=== PATIENT | male | born 1945 | race African-American/Black ===

== ENCOUNTER 2016-10-06 09:05 | Outpatient (CLI) | payer MEDICARE ==
[2016-10-06 12:37] LABS: #Basophils 0.1 thou/uL (0.0-0.2); #Eosinphils 0.2 thou/uL (0.0-0.7); #Lymphocytes 1.8 thou/uL (1.20-3.40); #Monocytes 0.6 thou/uL (0.11-0.59); #Neutrophils 2.4 thou/uL (1.40-6.50); %Basophils 1.3 % (0.0-1.0); %Eosinophils 3.3 % (0.0-10.0); %Lymphocytes 35.5 % (21.0-51.0); %Monocytes 11.4 % (0.0-10.0); Mean Platelet Volume 6.3 fL (7.4-10.4); Red Blood Cell (RBC) Count 5.48 mill/uL (4.70-6.10)
[2016-10-06 12:43] LABS: ALT (SGPT) 19 U/L (0-55); AST (SGOT) 26 U/L (5-34); Alkaline Phosphatase 72 U/L (40-150); Anion Gap 18 mmol/L (10-20); BUN (Urea Nitrogen) 9 mg/dL (8.4-25.7); Bilirubin, Total 0.8 mg/dL (0.2-1.2); Calc. Creatinine Clearance 0 mL/min (70-130); Calcium 9.2 mg/dL (7.8-10.44); Carbon Dioxide 24 mmol/L (23-31); Chloride 102 mmol/L (98-107); Estimated GFR-MDRD 90; Globulin 3.2 g/dL (2.4-3.5); LDL Cholesterol, Calculated 103 mg/dL; Protein, Total 7.4 g/dL (5.8-8.1)
[2016-10-06 12:57] LABS: Bilirubin Negative (Negative); Blood, Urine Negative (Negative); Glucose, Urine (Dipstick) Negative (Negative); Ketone, Urine Negative (Negative); Nitrite Negative (Negative); Protein, Urine (Dipstick) Trace mg/dL (Neg-Trace); Urobilinogen 0.2 mg/dL (0.2-1.0)
[2016-10-06 13:20] LABS: Hemoglobin A1c 6.5 % (4.0-6.0)
== END 2016-10-06 09:06 ==
LOC: NAVSJIPCSP 09:05
PROVIDERS: ATTEND Internal Medicine
DX: Z12.5 Encounter for screening for malignant neoplasm of prostate (principal); E78.5 Hyperlipidemia, unspecified; E11.9 Type 2 diabetes mellitus without complications; I11.9 Hypertensive heart disease without heart failure; Z79.899 Other long term (current) drug therapy
CPT/HCPCS: 36415; 80053; 80061; 81003; 82043; 83036; 85025; G0103

== ENCOUNTER 2016-10-20 09:34 | Emergency (ER) | payer MEDICARE ==
[2016-10-20] MEDS ORDERED: Sodium Chloride 0.9% 0 ML ONE (10:17)
[2016-10-20 10:40] LABS: ALT (SGPT) 19 U/L (0-55); AST (SGOT) 21 U/L (5-34); Alkaline Phosphatase 67 U/L (40-150); Anion Gap 15 mmol/L (10-20); BUN (Urea Nitrogen) 10 mg/dL (8.4-25.7); Bilirubin, Total 1.1 mg/dL (0.2-1.2); Calc. Creatinine Clearance 0 mL/min (70-130); Calcium 9.1 mg/dL (7.8-10.44); Carbon Dioxide 23 mmol/L (23-31); Chloride 105 mmol/L (98-107); Estimated GFR-MDRD 89; Globulin 3.5 g/dL (2.4-3.5); Protein, Total 7.4 g/dL (5.8-8.1)
[2016-10-20 10:45] LABS: PTT 28.6 SEC (22.9-36.1); Prothrombin Time 13.4 SEC (12.0-14.7)
[2016-10-20 10:58] LABS: Anisocytosis SLIGHT = 6-15 cells (100X) (0-5/hpf); Hematocrit 42.3 % (42.0-52.0); Mean Platelet Volume 6.9 fL (7.4-10.4); Neutrophil 49 % (42-75); Red Blood Cell (RBC) Count 5.24 mill/uL (4.70-6.10); White Blood Cell (WBC) Count 3.9 thou/uL (4.8-10.8)
== END 2016-10-20 12:59 | disposition home or self-care (01) ==
LOC: NAV ERS 09:34
DX: K92.2 Gastrointestinal hemorrhage, unspecified (principal); E11.9 Type 2 diabetes mellitus without complications; E78.5 Hyperlipidemia, unspecified; I10 Essential (primary) hypertension; J44.9 Chronic obstructive pulmonary disease, unspecified; Z87.891 Personal history of nicotine dependence; Z79.84 Long term (current) use of oral hypoglycemic drugs
CPT/HCPCS: 36415; 80053; 82274; 85025; 85610; 85730; 99285; J7050

== ENCOUNTER 2017-01-04 09:01 | Outpatient (CLI) | payer MEDICARE ==
[2017-01-04 15:36] LABS: Cardiac Risk 4.6 (Less than 4.5)
[2017-01-04 17:50] LABS: Hep C IgG Ab Non-Reactive (NonReactive); Hep C Index 0.09 S/CO (0-0.79)
== END 2017-01-04 09:02 | disposition home or self-care (01) ==
LOC: NAVSJIPCSP 09:01
PROVIDERS: ATTEND Internal Medicine
DX: E78.5 Hyperlipidemia, unspecified (principal); E11.9 Type 2 diabetes mellitus without complications; Z72.89 Other problems related to lifestyle; Z79.899 Other long term (current) drug therapy
CPT/HCPCS: 36415; 80061; 83036; 86803

== ENCOUNTER 2017-04-07 09:34 | Outpatient (CLI) | payer MEDICARE ==
[2017-04-07 12:45] LABS: Cardiac Risk 5.2 (Less than 4.5)
[2017-04-07 13:11] LABS: Hemoglobin A1c 6.4 % (4.0-6.0)
== END 2017-04-07 09:35 | disposition home or self-care (01) ==
LOC: NAVSJIPCSP 09:34
PROVIDERS: ATTEND Internal Medicine
DX: E78.5 Hyperlipidemia, unspecified (principal); E11.9 Type 2 diabetes mellitus without complications; Z79.899 Other long term (current) drug therapy
CPT/HCPCS: 36415; 80061; 83036

== ENCOUNTER 2020-07-28 14:19 | Emergency (ER) | payer MEDICARE ==
[2020-07-28] MEDS ORDERED: Acetaminophen 500 MG TAB ONE (15:31)
[2020-07-28 15:40] LABS: ALT (SGPT) 20 U/L (8-55); AST (SGOT) 34 U/L (5-34); Albumin 3.8 g/dL (3.4-4.8); Alkaline Phosphatase 58 U/L (40-110); Anion Gap 18 mmol/L (10-20); BUN (Urea Nitrogen) 19 mg/dL (8.4-25.7); Bilirubin, Total 0.3 mg/dL (0.2-1.2); Calc. Creatinine Clearance 0 mL/min (70-130); Calcium 8.8 mg/dL (7.8-10.44); Carbon Dioxide 23 mmol/L (23-31); Chloride 98 mmol/L (98-107); Globulin 3.6 g/dL (2.4-3.5); Glucose 97 mg/dL (83-110); Potassium 4.1 mmol/L (3.5-5.1); Protein, Total 7.4 g/dL (5.8-8.1); Sodium 135 mmol/L (136-145)
--- NOTE | 2020-07-28 15:44 | RAD ---
PORTABLE CHEST: Date: 07/28/2020 HISTORY: Cough and fever. COMPARISON: 02/15/2016 exam. FINDINGS: Heart size and mediastinum are within normal limits. No confluent infiltrative process is seen. Vague increased density could be an indication of subtle ground-glass opacities. There is blunting to the right costophrenic angle. IMPRESSION: 1. Suggestion of a small right pleural effusion. 2. No definite confluent infiltrate. Vague increased density, particularly in the right lung, would raise the possibility of some minimal ground-glass infiltrate. Clinical correlation is suggested as t o the possibility of COVID exposure. POS: NATHANIEL
[2020-07-28] MEDS ORDERED: Sodium Chloride 0.9% 100 ML ONE (15:55)
[2020-07-28] MEDS ORDERED: cefTRIAXone\\ROCEPHIN 1 GM VIAL ONE (15:55)
[2020-07-28 15:58] LABS: #Monocytes 0.4 thou/uL (0.11-0.59); #Neutrophils 1.4 thou/uL (1.40-6.50); %Basophils 0.7 % (0.0-1.0); %Eosinophils 0.1 % (0.0-10.0); %Lymphocytes 35.8 % (21.0-51.0); %Monocytes 15.3 % (0.0-10.0); %Neutrophils 48.1 % (42.0-75.0); Hemoglobin 14.5 g/dL (14.0-18.0); Mean Corpuscular HGB CONC 30.8 g/dL (32.0-36.0); Mean Corpuscular Hemoglobin 25.4 pg (27.0-31.0); Mean Corpuscular Volume 82.7 fL (78.0-98.0); Mean Platelet Volume 6.9 fL (7.4-10.4); Platelet Count 134 thou/uL (130-400); RBC Distribution Width 13.9 % (11.5-14.5); White Blood Cell (WBC) Count 2.9 thou/uL (4.8-10.8)
[2020-07-28] MEDS ORDERED: Dexamethasone 20 MG/5 ML VIAL ONE (16:19)
== END 2020-07-28 17:54 | disposition short-term general hospital (02) ==
LOC: NAV ERS 14:19
DX: R53.81 Other malaise (principal); R05 Cough; Z20.828 Contact with and (suspected) exposure to other viral communicable diseases; E11.9 Type 2 diabetes mellitus without complications; E78.5 Hyperlipidemia, unspecified; I10 Essential (primary) hypertension; Z87.891 Personal history of nicotine dependence; Z79.82 Long term (current) use of aspirin; Z79.899 Other long term (current) drug therapy; Z79.51 Long term (current) use of inhaled steroids
CPT/HCPCS: 71045; 80053; 83605; 83880; 84484; 85025; 87040; 93005; 94760; 96365; 96375; J0696; J1100; J3490

== ENCOUNTER 2021-11-08 01:03 | Emergency (ER) | payer OTHER, MEDICARE ==
[2021-11-08] MEDS ORDERED: Lidocaine 1% (PF) 30 ML VIAL ONE (02:27)
[2021-11-08] MEDS ORDERED: Boostrix 0.5 ML (Tdap) VIAL ONE (02:27)
== END 2021-11-08 03:30 | disposition home or self-care (01) ==
LOC: NAV ERS 01:03
DX: S01.111A Laceration without foreign body of right eyelid and periocular area, initial encounter (principal); S09.90XA Unspecified injury of head, initial encounter; S02.2XXA Fracture of nasal bones, initial encounter for closed fracture; F10.129 Alcohol abuse with intoxication, unspecified; E11.9 Type 2 diabetes mellitus without complications; I10 Essential (primary) hypertension; E78.5 Hyperlipidemia, unspecified; J44.9 Chronic obstructive pulmonary disease, unspecified; Z23 Encounter for immunization; Z79.82 Long term (current) use of aspirin; Z87.891 Personal history of nicotine dependence; W01.190A Fall on same level from slipping, tripping and stumbling with subsequent striking against furniture, initial encounter
CPT/HCPCS: 12011; 70450; 70486; 72125; 90471; 90715; J2001

== ENCOUNTER 2022-01-14 12:56 | Outpatient (CLI) | payer MEDICARE ==
[2022-01-14 13:27] LABS: #Eosinphils 0.2 thou/uL (0.0-0.7); #Lymphocytes 1.5 thou/uL (1.20-3.40); #Monocytes 0.6 thou/uL (0.11-0.59); #Neutrophils 1.9 thou/uL (1.40-6.50); %Basophils 0.9 % (0.0-1.0); %Eosinophils 4.3 % (0.0-10.0); %Lymphocytes 35.8 % (21.0-51.0); %Monocytes 13.8 % (0.0-10.0); %Neutrophils 45.1 % (42.0-75.0); Anion Gap 19 mmol/L (10-20); BUN (Urea Nitrogen) 12 mg/dL (8.4-25.7); Calc. Creatinine Clearance 0 mL/min (70-130); Calcium 9.6 mg/dL (7.8-10.44); Carbon Dioxide 24 mmol/L (23-31); Chloride 103 mmol/L (98-107); Glucose 106 mg/dL (83-110); Hemoglobin 12.7 g/dL (14.0-18.0); Mean Corpuscular HGB CONC 29.1 g/dL (32.0-36.0); Mean Corpuscular Hemoglobin 25.3 pg (27.0-31.0); Mean Corpuscular Volume 86.8 fL (78.0-98.0); Mean Platelet Volume 7.2 fL (7.4-10.4); Platelet Count 181 thou/uL (130-400); Potassium 4.5 mmol/L (3.5-5.1); RBC Distribution Width 15.5 % (11.5-14.5); Red Blood Cell (RBC) Count 5.04 mill/uL (4.70-6.10); Sodium 141 mmol/L (136-145); White Blood Cell (WBC) Count 4.3 thou/uL (4.8-10.8)
[2022-01-14 13:31] LABS: Prothrombin Time 13.4 sec (12.0-14.7)
[2022-01-14 13:32] LABS: PTT 34.3 sec (22.9-36.1)
[2022-01-14 14:11] LABS: Follow-up Chemistry Comp? YES; Follow-up Coag Comp? YES; Follow-up Hematology Comp? YES; Follow-up Result - Chemistry REPORT FAXED; Follow-up Result - Coag REPORT FAXED; Follow-up Result - Hematology REPORT FAXED
== END 2022-01-14 12:57 | disposition home or self-care (01) ==
LOC: NAV LABSP 12:56
PROVIDERS: ATTEND Chiropractor Neurology
DX: Z51.81 Encounter for therapeutic drug level monitoring (principal); I73.9 Peripheral vascular disease, unspecified; Z79.899 Other long term (current) drug therapy
CPT/HCPCS: 36415; 80048; 85025; 85610; 85730

== ENCOUNTER 2022-02-25 10:12 | Outpatient (CLI) | payer MEDICARE ==
[2022-02-25 11:14] LABS: Prothrombin Time 13.2 sec (12.0-14.7)
[2022-02-25 11:15] LABS: PTT 31.8 sec (22.9-36.1)
[2022-02-25 11:16] LABS: Anion Gap 16 mmol/L (10-20); BUN (Urea Nitrogen) 12 mg/dL (8.4-25.7); Calc. Creatinine Clearance 0 mL/min (70-130); Calcium 9.3 mg/dL (7.8-10.44); Carbon Dioxide 23 mmol/L (23-31); Chloride 104 mmol/L (98-107); Estimated GFR 71; Glucose 116 mg/dL (83-110); Potassium 4.1 mmol/L (3.5-5.1); Sodium 139 mmol/L (136-145)
[2022-02-25 11:24] LABS: #Eosinphils 0.1 thou/uL (0.0-0.7); #Lymphocytes 1.4 thou/uL (1.20-3.40); #Monocytes 0.5 thou/uL (0.11-0.59); #Neutrophils 1.7 thou/uL (1.40-6.50); %Basophils 0.8 % (0.0-1.0); %Eosinophils 3.9 % (0.0-10.0); %Lymphocytes 37.2 % (21.0-51.0); %Monocytes 13.7 % (0.0-10.0); %Neutrophils 44.4 % (42.0-75.0); Hemoglobin 12.3 g/dL (14.0-18.0); Mean Corpuscular HGB CONC 28.6 g/dL (32.0-36.0); Mean Corpuscular Hemoglobin 25.3 pg (27.0-31.0); Mean Corpuscular Volume 88.6 fL (78.0-98.0); Mean Platelet Volume 7.7 fL (7.4-10.4); Platelet Count 148 thou/uL (130-400); RBC Distribution Width 15.7 % (11.5-14.5); Red Blood Cell (RBC) Count 4.86 mill/uL (4.70-6.10); White Blood Cell (WBC) Count 3.8 thou/uL (4.8-10.8)
== END 2022-02-25 10:13 | disposition home or self-care (01) ==
LOC: NAV LABSP 10:12
PROVIDERS: ATTEND Chiropractor Neurology
DX: Z51.81 Encounter for therapeutic drug level monitoring (principal); I73.9 Peripheral vascular disease, unspecified; Z79.899 Other long term (current) drug therapy
CPT/HCPCS: 36415; 80048; 85025; 85610; 85730

== ENCOUNTER 2022-12-12 04:25 | Emergency (ER) | payer MEDICARE ==
[2022-12-12] MEDS ORDERED: Ibuprofen 200 MG TAB ONE (05:10)
[2022-12-12] MEDS ORDERED: predniSONE 20 MG TAB ONE (05:10)
== END 2022-12-12 05:15 | disposition home or self-care (01) ==
LOC: NAV ERS 04:25
DX: S29.011A Strain of muscle and tendon of front wall of thorax, initial encounter (principal); R05.9 Cough, unspecified; E11.9 Type 2 diabetes mellitus without complications; E78.5 Hyperlipidemia, unspecified; I10 Essential (primary) hypertension; J44.9 Chronic obstructive pulmonary disease, unspecified; Z87.891 Personal history of nicotine dependence; Z79.84 Long term (current) use of oral hypoglycemic drugs; Z79.899 Other long term (current) drug therapy; X58.XXXA Exposure to other specified factors, initial encounter
CPT/HCPCS: 71046; J7512

== ENCOUNTER 2025-07-15 15:51 | Emergency (ER) | payer MEDICARE ==
[2025-07-15 17:12] LABS: ALT (SGPT) 11 U/L (Less than 45); AST (SGOT) 32 U/L (11-34); Albumin 3.8 g/dL (3.1-4.5); Alkaline Phosphatase 59 U/L (40-110); Anion Gap 20 mmol/L (10-20); BUN (Urea Nitrogen) 15 mg/dL (8.4-25.7); Bilirubin, Total 1.3 mg/dL (0.3-1.2); Calc. Creatinine Clearance 0 mL/min (70-130); Calcium 9.3 mg/dL (7.8-10.44); Carbon Dioxide 20 mmol/L (23-31); Chloride 102 mmol/L (98-107); Globulin 4.3 g/dL (2.4-3.5); Glucose 115 mg/dL (83-110); Sodium 137 mmol/L (136-145)
[2025-07-15] MEDS ORDERED: cefTRIAXone (ROCEPHIN) 2 GM VIAL ONE (17:20)
[2025-07-15 17:31] LABS: Hematocrit 42.9 % (42.0-52.0); Hemoglobin 13.5 g/dL (14.0-18.0); Mean Corpuscular Hemoglobin 25.0 pg (27.0-31.0); Mean Corpuscular Volume 79.8 fl (78.0-98.0); Platelet Count 165 10x3/uL (130-400); Red Blood Cell (RBC) Count 5.38 mill/uL (4.70-6.10); White Blood Cell (WBC) Count 10.2 10x3/uL (4.8-10.8)
[2025-07-15 17:51] LABS: MDiff Complete? YES
[2025-07-15 17:54] LABS: Potassium 3.9 mmol/L (3.5-5.1)
[2025-07-15 18:02] LABS: Toxic Granulation SLIGHT
== END 2025-07-15 18:33 | disposition home or self-care (01) ==
LOC: NAV ERS 15:51
DX: J18.9 Pneumonia, unspecified organism (principal); J44.9 Chronic obstructive pulmonary disease, unspecified; E11.9 Type 2 diabetes mellitus without complications; E78.5 Hyperlipidemia, unspecified; Z87.891 Personal history of nicotine dependence; Z79.899 Other long term (current) drug therapy; Z79.84 Long term (current) use of oral hypoglycemic drugs
CPT/HCPCS: 71046; 80053; 83605; 85025; 87070; 87205; 87428; 94640; J0696; J7030; 96365

== ENCOUNTER 2025-08-06 09:45 | Outpatient (CLI) | payer MEDICARE | END 2025-08-06 09:46 | disposition home or self-care (01) | LOC: NAV RAD 09:45 | PROVIDERS: ATTEND Nurse Practitioner Family | DX: J18.9 Pneumonia, unspecified organism (principal); R91.8 Other nonspecific abnormal finding of lung field; J90 Pleural effusion, not elsewhere classified | CPT/HCPCS: 71046 ==